=== PATIENT | male | born 1990 | race Caucasian/White ===

== ENCOUNTER 2023-10-17 09:52 | Emergency (ER) | payer MEDICAID, SELFPAY ==
[2023-10-17 09:53] VITALS: BP 130/74; PULSE 104; RESP 18; TEMP 37.7; O2SAT 98; BMI 26.2
--- NOTE | 2023-10-17 10:05 | EX.ED.VIS.UR ---
HPI HPI - URI History of Present Illness Chief Complaint: Cold Sx Informant: patient and spouse/S.O. Onset/Context/Timing Onset: Today and Yesterday Context: Gradual Onset Timing: Continuous Current Severity: Mild Maximum Severity: Mild Associated Symptoms Associated Symptoms: Positive for Nasal Congestion, Myalgias, Nausea, Vomiting and Productive Cough Narrative Narrative: 33-year-old male new to the base of medical history. Yesterday started with sore throat, earaches myalgias. Has had nausea and vomiting. Fever and chills at home subjectively. No known exposure. Productive cough of yellow Prior similar symptoms: Yes Recent Illness/Hospitalization: No ROS ROS ED ROS Narrative Cough. Fever and chills. Nausea and vomiting. Body aches. Review of Systems ROS Unobtainable: Denies due to encephalopathy Constitutional Constitutional ED: Reports chills, fever(s) and subjective Eyes Eyes: Denies blurry vision ENT ENT ED: Reports ear pain, rhinorrhea and sore throat Cardiovascular Cardiovascular: Denies chest pain or palpitations Respiratory/Chest Respiratory/Chest: Denies dyspnea Gastrointestinal Gastrointestinal: Reports nausea and vomiting; Denies abdominal pain, constipation, diarrhea or melena Genitourinary Genitourinary ED: Denies dysuria or hematuria Musculoskeletal Musculoskeletal: Denies arthralgias Integumentary Denies abscess or Abrasions Neurologic Neurologic: Denies headache(s) Psychiatric Psychiatric: Denies anxiety or depression Endocrine Endocrinology: Denies cold intolerance Hematologic/Lymphatic Hematologic/Lymphatic: Denies easy bleeding or easy bruising Allergic/Immunologic Allergic/Immunologic ED: Denies mouth swelling, tongue swelling or urticaria PFSH PFSH Home Medications azithromycin 250 mg tablet (Zithromax Z-Jose) 250 mg PO DAILY 4 days #4 tabs 10/17/23 [Rx Last Taken Unknown] prednisone 20 mg tablet 40 mg (2 x 20 mg) PO DAILY 7 days #14 tabs 10/17/23 [Rx Last Taken Unknown] Allergy/AdvReac Type Severity Reaction Status Date / Time No Known Allergies Allergy Verified 10/17/23 09:52 Surgical History no surgical history no surgical history Social History Smoking Status: Smoker, status unknown EXAM Physical Exam Narrative Exam Narrative: 32-year-old male vital signs are stable he does not look septic or toxic. He does look mildly dehydrated. H EENT exam mild dry mucous membranes. Posterior pharynx unremarkable. Neck nontender no lymphadenopathy. No meningismus. Lungs dry cough. Expiratory wheezes. Equal symmetrical. No rales or rhonchi. Heart tachycardic 105 no murmur. Chest wall and ribs nontender. Abdomen soft nontender. Moving all 4 extremities. Calves are nontender without edema or cords. Neurologically is awake and alert with no focal motor deficits. Const Vital Signs: 10/17/23 09:53 10/17/23 10:13 10/17/23 10:33 Temperature 99.9 F H Temperature Source Temporal Pulse Rate 104 H 96 Respiratory Rate 18 20 H Respiratory Effort Normal Respiratory Pattern Normal Blood Pressure 130/74 H Blood Pressure Mean 92 Pulse Ox 98 Oxygen Delivery Method Room Air 10/17/23 10:15 10/17/23 12:14 Temperature Temperature Source Pulse Rate 92 Respiratory Rate 16 Respiratory Effort Respiratory Pattern Blood Pressure 111/65 Blood Pressure Mean 80 Pulse Ox 97 93 Oxygen Delivery Method Room Air Room Air Positive well nourished and well developed; Negative for cachectic or contractures General Appearance ED: well developed and NAD; Negative for cachectic, contractures, diaphoretic or pallor Nutritional Appearance: Negative for cachectic HEENT Reports dry mucous membranes; Denies moist mucous membranes normocephalic and atraumatic Face and Sinus: Negative for sinus tenderness Mouth ED: Yes dry mucous membranes Mouth: dry mucous membranes Teeth and Gingiva: Negative for caries Throat: posterior oropharynx normal Eyes PERRL and EOMs intact bilaterally General Eye ED: Negative for pale conjunctiva or scleral icterus Neck no lymphadenopathy, supple, no meningeal signs and no JVD General: Negative for anterior neck swelling or lymphadenopathy Resp normal respiratory effort and No clear to auscultation bilaterally Resp Narrative: Bilateral expiratory wheezes. Dry cough. Auscultation: wheezes Cardio S1 normal heart sound, S2 normal heart sound and no murmurs Rate: tachycardic; Negative for bradycardia Rhythm: regular rhythm; Negative for abnormal rhythm GI non-tender, non-distended and no masses Inspection: Negative for abdominal distention Auscultation: normoactive bowel sounds Palpation: soft and tender; Negative for guarding Back/Spine no CVA tenderness and normal ROM General Back: Negative for CVA tenderness Cervical Spine: Negative for cervical spine tenderness Thoracic Spine / Upper Back: Negative for thoracic spinal tenderness Lumbar Spine / Lower Back: Negative for lumbar spinal tenderness Sacrum: Negative for tenderness Extremity normal to inspection and full ROM General Extremety ED: Negative for cyanosis or tenderness General Extremity: Negative for cyanosis Neuro oriented x3 and CN's II-XII intact bilaterally Sensorium / Orientation: alert, oriented to person, oriented to place and oriented to time; Negative for orientation impaired or lethargic Motor Exam: strength 5/5 throughout; Negative for general weakness or strength abnormal Psych mental status grossly normal Appearance: Negative for other Attitude: No agitated Mood & Affect: Negative for depressed, anxious or tearful Skin General Skin Exam: Negative for jaundice or pallor Rashes: no rashes Trauma: Negative for abrasion or laceration MDM MDM MDM Narrative Medical decision making narrative: 34-year-old male suspect viral URI. Rule out pneumonia. Clinically looks dehydrated will be given IV fluids. COVID and flu testing. Chest x-ray. DuoNeb aerosol prednisone for his bronchospasm. Patient doing all well. He will be discharged home.Zithromax Z-Jose first dose here. Prescription for home. Prednisone for his wheezing. History & Record Review Discussion w/independent historian: Patient and Family Additional record(s) reviewed:: No prior records Lab Data Attestation: I reviewed the patient's lab results. Radiography Chest X-Ray - ED: 1 View, Read by ED Physician, Normal, Mediastinum and Bony Structures Diagnostic Testing: Clinical Impression(s) from Imaging Studies Chest X-Ray 10/17/23 10:25 IMPRESSION: Moderate consolidation in the right lung base concerning for pneumonia. Recommend follow-up to resolution. Electronically Signed: Deanne Childers MD at 10:52 EST , Chest x-ray, portable, single view interpreted by myself and the radiologist shows a right lower lobe pneumonia. Normal cardiac silhouette. No effusions.I went over the x-ray results with the patient and his significant other. Discharge Plan Triage Chief Complaint: Cold Sx ED Provider: Tariq Pham Dx/Rx/DC Orders Clinical Impression: Pneumonia Instructions: ED Pneumonia (Adult) Prescriptions: New azithromycin [Zithromax Z-Jose] 250 mg tablet 250 mg PO DAILY 4 Days Qty: 4 0RF Rx Instructions: start on day 2 of therapy prednisone 20 mg tablet 40 mg PO DAILY 7 Days Qty: 14 0RF Primary Care Provider: Care Physician,No Primary Referrals: Larry Hernández MD [Med Staff - [employer]] - 1 Week if not improving Care Physician,No Primary [Primary Care Provider] - Activity Restrictions/Additional Instructions: Plenty of fluids and rest including water, Gatorade and 7-Up. Alternate Tylenol and Motrin for fever body aches. Zithromax for the pneumonia. Prednisone for the wheezing. Off work the next 3 days for rest. Follow-up with a local doctor if not improving return if worse.
[2023-10-17] MEDS: Ipratropium/Albuterol Sulfate 3 ML AMPUL.NEB INHALATION (10:11)
[2023-10-17 10:13] VITALS: PULSE 96; RESP 20
[2023-10-17 10:15] VITALS: O2SAT 97
[2023-10-17] MEDS: 0.9% Normal Saline (1000mL) 1,000 ML 1000 ML IV (10:19)
[2023-10-17] MEDS: Acetaminophen 500 MG Tablet 1000 MG PO (10:19)
[2023-10-17] MEDS: predniSONE 20 MG Tablet 60 MG PO (10:19)
--- OUTSIDE RECORDS SUMMARY | 2023-10-17 10:23 | XMS RPT_ITS | CCD ---
Author Name Unknown Address [address] [place] [address] Organization [facility] Care Team Providers Care Purification Operator Helper Name Role Phone PHONGWENDIBERNABEON Unavailable Unavailable BERNABE CARNESON Unavailable Unavailable MICHELLE PAREKH Unavailable Unavailab BANDAR WyaneZABETH Unavailable Unavailable BANDAR ANDREZABETH Unavailable Unavailable MICHELLE PAREKH Unavailable Unavailab le Michelle Parekh DO Primary Care Provider Unavailable Primary Care Provider UnavailVIJAY Dennis Attending Unavailable ANGELA GODINEZ Attending Unavailable No, Physician Primary Care Provider Unavailabl e LUZ, PHYSICIAN Primary Care Unavailable SUMAN COHEN Referring Unavailable NINA YU Attending Unavailable NO, PHYSICIAN Primary Care Unavailable KORIN EM Attending Unava ilable GAUDENCIO DAVEY Attending Unavailab le NO, PHYSICIAN Primary Care Unavailable KORIN EM Attending Unava ilable NO, PHYSICIAN Primary Care Unavailable NO, PHYSICIAN Primary Care Unavailable KORIN EM Referring Unava SUMAN Lao Attending Unavailable Medications Current Medications Medication Drug Class(es) Dates Sig (Normalized) Sig (Original) amoxicillin 500 mg oral tablet (1 source) Penicillin-class Antibacterial Start: 10-12-2022 End: 10-22-2022 take 1 tablet by mouth twice daily amoxicillin (Amoxil) 500 mg tablet Indications: Strep pharyngitis Take 1 tablet (500 mg total) by mouth 2 (two) times a day for 10 days. 20 tablet 0 10/12/2022 10/22/2022 Active buprenorphine 8 mg / naloxone 2 mg sublingual tablet (1 source) Partial Opioid Agonist, Opioid Antagonist buprenorphine-nalox one (SUBOXONE) 8-[address] 1 tablet under the tongue. 0 Active ondansetron 4 mg disintegrating oral tablet (1 source) Serotonin-3 Receptor Antagonist Start: 07-01-2023 take 1 tablet by mouth every eight hours as needed for nausea ondansetron (ZOFRAN-ODT) 4 MG disintegrating tablet Dissolve 1 (one) tablet (4 mg total) on top of tongue every 8 (eight) hours as needed for nausea . 20 tablet 0 07/01/2023 Active Problems Active Problems Problem Classification Problem Date Documented Da te Episodic/Chronic Calculus of urinary tract (2 sources) Calculus of kidney; Translations: [Calculus of kidney] Onset: 07-01-2023 Episodic Other connective tissue disease (1 source) Groin mass; Translations: [Other specified soft tissue disorders] 08-10-2023 Episodic Other connective tissue disease (2 sources) Other specified soft tissue disorders; Translations: [Other specified soft tissue disorders] Onset: 08-10-2023 Episodic Other lower respiratory disease (1 source) Cough; Translations: [Acute cough] Episodic Other male genital disorders (1 source) Pain of right testicle; Translations: [Right testicular pain] 08-10-2023 Episodic Other male genital disorders (6 sources) Right testicular pain; Translations: [Right testicular pain] Onset: 07-26-2023 Episodic Other upper respiratory infections (2 sources) Sore throat symptom; Translations: [Acute pharyngitis, unspecified] Episodic Skin and subcutaneous tissue infections (2 sources) Cellulitis of other sites; Translations: [Cellulitis of other sites] Onset: 07-26-2023 Episodic Unclassified (1 source) Migraine without aura, not intractable, without status migrainosus / G43.009(ICD-10) Onset: 08-22-2018 Past or Other Problems Problem Classification Problem Date Documented Da te Episodic/Chronic Superficial injury; contusion (2 sources) Contusion of right middle finger without damage to nail, initial encounter; Translations: [Contusion of right middle finger without damage to nail, initial encounter] Onset: 02-24-2023 Episodic Results Test Name Value Interpretation Reference Range Facil ity Vital Signs Date Time Vital Sign Value Performing Clinician Facility 08-10-2023 13:41-0500 Diastolic blood pressure 92 mm[Hg] Nina Yu MD Work Phone: [facility] 08-10-2023 13:41-0500 Heart rate 88 /min Nina Yu MD Work Phone: [facility] 08-10-2023 13:41-0500 SaO2% (BldA) [Mass fraction] 98 % Nina Yu MD Work Phone: [facility] 08-10-2023 13:41-0500 Systolic blood pressure 140 mm[Hg] Nina Yu MD Work Phone: [facility] 10-12-2022 12:09-0500 Body temperature 98.4 [degF] Angela Godinez PROMOTION OFFICER-OFFICE PROFESSIONAL Work Phone: [facility] 10-12-2022 12:09-0500 Diastolic blood pressure 81 mm[Hg] Angela Godinez PROMOTION OFFICER-OFFICE PROFESSIONAL Work Phone: [facility] 10-12-2022 12:09-0500 Heart rate 104 /min Angela Godinez PROMOTION OFFICER-OFFICE PROFESSIONAL Work Phone: [facility] 10-12-2022 12:09-0500 Respiratory rate 20 /min Angela Godinez PROMOTION OFFICER-OFFICE PROFESSIONAL Work Phone: [facility] [employer] 10-12-2022 12:09-0500 SaO2% (BldA) [Mass fraction] 97 % Angela Godinez PROMOTION OFFICER-OFFICE PROFESSIONAL Work Phone: [facility] [employer] 10-12-2022 12:09-0500 Systolic blood pressure 118 mm[Hg] Angela Godinez PROMOTION OFFICER-OFFICE PROFESSIONAL Work Phone: [facility] Encounters Encounter Date Encounter Type Care Provider Facility Start: 08-10-2023 End: 08-10-2023 ambulatory PHYSICIAN NO [facility] Start: 08-10-2023 End: 08-10-2023 Office outpatient new 45 minutes Nina Yu MD Work Phone: [facility] Procedures Date Procedure Procedure Detail Performing Clinician Start: 08-10-2023 MEASURE POST VOID RESIDUAL Nina Yu MD Work Phone: Start: 08-10-2023 Urnls dip stick/tabl et rgnt auto w/o microscopy Nina Yu MD Work Phone: Start: 10-12-2022 POC COVID-FLU MARKO Petey Godinez PROMOTION OFFICER-OFFICE PROFESSIONAL Work Phone: Start: 10-12-2022 Iaadiadoo streptococ cus group a Angela Godinez PROMOTION OFFICER-OFFICE PROFESSIONAL Work Phone: Plan of Treatment Date Care Activity Detail Author Start: 2039 Zoster Vaccines (1 of 2) Zoster Vaccines (1 of 2) [facility] Start: 12-29-2025 Tetanus vaccination Tetanus: Every 10yrs [facility] Start: 04-03-2024 DTaP/Tdap/Td Vaccines (6 - Td or Tdap) DTaP/Tdap/Td Vaccines (6 - Td or Tdap) [facility] Start: 09-14-2023 End: 09-14-2023 Patient encounter procedure 09/14/2023 3:15 PM EST Office Visit [facility] Physician [facility] [address] [place] [address] Nina Yu MD [address] [place] [address] [facility] Physician [facility] Start: 05-07-2023 Influenza vaccination Sequential Influenza Vaccine (#1) [facility] Start: 05-07-2022 Influenza vaccination Influenza Vaccine (#1) [facility] Start: 05-07-2021 Influenza vaccination given INFLUENZA VACCINE (Season Ended) [facility] Start: 2007 ANNUAL WELLNESS VISIT ANNUAL WELLNESS VISIT [facility] Start: 2007 Hepatitis C screening Hepatitis C Screening [facility] Start: 2004 HIV screening HIV Screening [facility] Start: 2001 Depression screening using PHQ-9 (Patient Health Questionnaire 9) score [facility] Start: 2000 Diphtheria + pertussis + tetanus vaccine (product) DTAP/TDAP/TD VACCINE (1 - Tdap) [facility] Start: 1995 Pneumococcal Vaccine: Ped or At-Risk (1 - PCV) Pneumococcal Vaccine: Ped or At-Risk (1 - PCV) [facility] Start: 1995 Pneumococcal Vaccine: Pediatrics (0 to 5 Years) and At-Risk Patients (6 to 64 Years) (1 - PCV) Pneumococcal Vaccine: Pediatrics (0 to 5 Years) and At-Risk Patients (6 to 64 Years) (1 - PCV) [facility] Start: 1992 History and physical examination, annual for health maintenance Wellness Visit [facility] Start: 1989 COVID-19 Vaccine (#1) COVID-19 Vaccine (#1) [facility] Start: 1989 Hepatitis C screening Hepatitis C Screening [facility] Start: 1989 HIV screening HIV Screening [facility] Start: 1989 Lipid panel Lipid Panel [facility] End: 08-10-2024 MR Pelvis WO and W contrast IV MR Pelvis With And Without Contrast Imaging Routine Mass Of Deep Soft Tissue Of Groin 1 Occurrences starting 08/10/2023 until 08/10/2024 [facility] Work Phone: Immunizations Immunization Date Immunization Notes Care Provider Chanelle whalen 06-06-2018 influenza virus vaccine, unspecified formulation Angela Godinez PROMOTION OFFICER-OFFICE PROFESSIONAL Work Phone: [facility] 12-30-2015 tetanus toxoid, redu ishmael diphtheria toxoid, and acellular pertussis vaccine, adsorbed Nina Yu MD Work Phone: [facility] Payers Date Payer Category Payer Unknown [id number] 2020 Medicaid [id number] 2020 Medicaid [id number] 2018 Medicaid RANJANACLYDESuzan CLARK O [id number] 2018-Present [address] [place] [address] Medicaid [id number] 1989 Unknown [id number] 1989 Unknown [id number] 1989 Unknown [id number] 1989 Unknown [id number] 1989 Unknown [id number] 1989 Unknown [id number] 1989 Unknown [id number] Social History Date Type Detail Facility Start: 08-22-2018 End: 02-24-2023 Tobacco smoking status NHIS Current every day smoker [facility] History of tobacco use Cigarette Smoker [facility] Start: 08-22-2018 End: 08-10-2023 Cigarettes smoked current (pack per day) - Reported [facility] Start: 08-22-2018 End: 06-17-2021 Tobacco use and exposure Never used [facility] Start: 08-22-2018 End: 08-10-2023 Alcohol intake Current non-drinker of alcohol (finding) [facility] Start: 1990 Sex Assigned At Not on file [facility] Start: 10-02-2022 End: 10-12-2022 Exposure to SARS-CoV-2 (event) Not sure [facility] Start: 08-10-2023 Tobacco use panel [facility] Start: 07-01-2023 Gender identity Identifies as male gender (finding) [facility] Start: 07-01-2023 Sexual orientation Heterosexual (finding) [facility] History of Present illness Narrative 08-10-2023 Nina Yu MD - 08/10/2023 1:44 PM EST Note Date & Type Note Facility 08-10-2023 History of Presen t illness Narrative [facility] Patient / Consultation Patient Name: El Hunter II Admit Date: MR #: [id number] : 1990 Physicians: No, Physician (Family); Suman Cohen DO (Referring) Chief Complaint/Reason for Visit: scrotal lesion History of Present Illness: 33 y.o. male referred for scrotal lesion ~3 months ago noticed a knot within / on the right side of the scrotum. No obvious inciting incident, trauma / injury, bite or exposure. Seems to be stable in size / not enlarging. No drainage or redness. Just feels hard. There is some random intermittent associated pain in the area, not always due to touching the area, ambulation or activity. No Hx similar issues. No associated urinary symptoms. No prior scrotal or testicular surgeries. No erection issues or associated sexual dysfunction. Record Review: - I reviewed patient's records from ED provider Suman Cohen DO. History: Past Medical History: Diagnosis Date ADHD (attention deficit hyperactivity disorder) Back pain Bipolar 1 disorder (HCC) Hypertension Past Surgical History: Procedure Laterality Date EYE SURGERY History reviewed. No pertinent family history. Social History Socioeconomic History Marital status: Tobacco Use Smoking status: Every Day Packs/day: 2 Types: Cigarettes Vaping Use Vaping Use: Never used Substance and Sexual Activity Alcohol use: No Drug use: No Allergies: I have reviewed the patient's allergies. Patient has no known allergies. Home Medications: Outpatient Medications as of 08/10/2023 Medication Sig ondansetron (ZOFRAN-ODT) 4 MG disintegrating tablet Dissolve 1 (one) tablet (4 mg total) on top of tongue every 8 (eight) hours as needed for nausea . Review of Systems: The following system(s) were reviewed and pertinent findings noted: Review of Systems Constitutional: Negative for activity change, chills, fever and unexpected weight change. Gastrointestinal: Negative for abdominal pain, diarrhea, nausea and vomiting. Objective: Vital Signs: BP (!) 140/92 Pulse 88 SpO2 98% Physical Exam Vitals reviewed. Constitutional: General: He is not in acute distress. Appearance: He is not diaphoretic. Pulmonary: Effort: Pulmonary effort is normal. No respiratory distress. Abdominal: General: There is no distension. Palpations: Abdomen is soft. Tenderness: There is no abdominal tenderness. Genitourinary: Comments: Circumcised phallus, orthotopic meatus; scrotum developed & without edema, erythema or lesion; testicles descended & nontender without any palpable masses or lesions. Within the right groin crease lateral to the right hemiscrotum & lateral to the right spermatic cord, there is a small ~1-2cm somewhat nodular structure that is mobile & without palpable tenderness or fluctuance; the overlying skin shows several stretch hyde; differential would include lymph node, sebaceous cyst, soft tissue neoplasm. Neurological: General: No focal deficit present. Mental Status: He is alert and oriented to person, place, and time. Psychiatric: Mood and Affect: Mood normal. Behavior: Behavior normal. Laboratory Results Reviewed: No results found for: PSASCRN , PSA , PSAFREE No results found for: TESTOSTERONE , E2 Lab Results Component Value Date WBC 6.38 07/01/2023 HGB 13.7 07/01/2023 HCT 41.6 07/01/2023 MCV 90.2 07/01/2023 PLT 372 07/01/2023 Lab Results Component Value Date GLUCOSE 93 01/30/2017 CALCIUM 9.2 01/30/2017 NA 141 01/30/2017 K 4.3 01/30/2017 CL 102 01/30/2017 BUN 10 07/01/2023 CREATININE 0.94 07/01/2023 Recent Results (from the past 24 hour(s)) POC Urinalysis Dipstick, Auto Collection Time: 08/10/23 1:37 PM Result Value Ref Range Glucose, UA Negative Normal, Negative mg/dL Bilirubin, UA Negative Negative Ketones, UA Negative Negative mg/dL Spec Grav, UA 1.020 1.005 - 1.025 Blood, UA Negative Negative pH, UA 6.5 5.0 - 7.0 Protein, UA Negative Negative mg/dL Urobilinogen, UA 0.2 <2.0, 0.2, Normal, Negative, 1.0, 2.0, <1.0 mg/dL Nitrite, UA Negative Negative Leukocyte Esterase, UA Negative Negative Measure post void residual Collection Time: 08/10/23 1:42 PM Result Value Ref Range Measure Post Void Residual 0 Imaging Reviewed: Images & report independently reviewed; images independently interpreted by me: - Questionable soft tissue lesion with blood flow on image labeled scrotum; testicles appear healthy with adequate flow & no masses. US Testicle With Color Flow Result Date: 07/26/2023 EXAMINATION: US TESTICLE WITH COLOR FLOW HISTORY: ORDERING SYSTEM PROVIDED HISTORY: Right testicular/scrotal mass and pain, TECHNOLOGIST PROVIDED HISTORY: Illness/Other Reason for exam: right testicular/scrotal mass and pain Cancer History: unknown Surgery, RadiationHistory: unknown Encounter Type: Initial Additional signs and symptoms: none ORDERING SYSTEM PROVIDED DIAGNOSIS CODES: COMPARISON: None. TECHNIQUE: Arterial duplex examination performed using B-mode, color flow and spectral analysis. FINDINGS: The right testicle measures 3.9 x 3.2 x 2.1 cm. Arterial and venous waveforms are present. The resistive index is 0.5. No testicular mass. The right epididymis measures 0.9 x 0.9 x 0.8 cm and appears normal. The left testicle measures 4.4 x 3 x 2 cm. Arterial and venous waveforms are present. The resistive index is 0.7. No testicular mass. The left epididymis measures 0.5 x 1.2 x 1.4 cm and appears normal. No hydrocele. In the right scrotum at the area of pain as indicated by the patient, there is an ill-defined heterogeneous area with overall central hypoechogenicity and peripheral hyperemia measuring 0.9 x 0.5 x 0.7 cm. 1. Ill-defined mass in the right scrotum with peripheral hyperemia has imaging features suggesting an abscess with other differential considerations including an extratesticular neoplasm. 2. No evidence of torsion, testicular mass, or epididymo-orchitis. /[facility] Workstation ID: [id number] Assessment: El Hunter is a 33 y.o. y/o male Diagnoses and all orders for this visit: Mass of deep soft tissue of groin - MR Pelvis With And Without Contrast; Future Pain in right testicle - POC Urinalysis Dipstick, Auto - Measure post void residual - UA today shows neg RBC, neg LE, neg nitrite. No further workup. - PVR today by bladder scan: 0 cc - Discussed common etiologies of scrotal / testicular swelling including infection, inflammation, trauma, hydrocele, varicocele, spermatocele / epididymal cyst, scrotal cyst or mass, testicular mass both benign or malignant, spermatic cord or epididymal mass, hernia, peripheral edema / CHF / cirrhosis / nephrotic syndromes, among others. - Discussed diagnostic workup beginning with scrotal / testicular ultrasound & urinalysis / PVR / assessment of voiding function. - Discussed additional testing to rule out occult UTI / prostatitis, include PCR testing of urine and/or semen. - Discussed management options for symptoms including scrotal support / elevation & intermittent ice; discussed risks/benefits/alternatives to definitive management involving surgical excision of hydrocele. Discussed more conservative procedural intervention with hydrocele aspiration under local anesthesia & that this is typically less effective due to low success / high recurrence rates but can be an appropriate option in certain scenarios when more definitive operative intervention is not preferred due to additional risks and/or patient preference. - Discussed possible etiologies of scrotal / testicular pain including infection, inflammation, trauma, hydrocele, varicocele, spermatocele / epididymal cyst, scrotal cyst or mass, testicular mass both benign or malignant, spermatic cord or epididymal mass, hernia, urolithiasis, constipation, chronic pain of unknown etiology, among others. - Discussed diagnostic workup beginning with scrotal / testicular ultrasound & urinalysis / PVR / assessment of voiding function. - Discussed additional testing to rule out occult UTI / prostatitis, include PCR testing of urine and/or semen. - Discussed possible treatment options pending workup if no definitive causative etiology can be determined, including trial of NSAIDs, scrotal support / elevation / ice, trial of antibiotics, spermatic cord injection / nerve block, referral to pain management, operative interventions for pain in the absence of anatomical abnormality including spermatic cord denervation & orchiectomy. - Discussed that testicular / scrotal pain in absence of identifiable pathology is relatively common, can be self-limiting or progressive / chronic in nature & can unfortunately become worse with any of the above interventions. Plan: - Lesion in question does not seem to be urologic in origin, but is located in the soft tissue of the groin crease / medial thigh & is palpably separate from the scrotal wall, scrotal contents & spermatic cord. - Based on my review of imaging & patient history & physical exam, index of suspicion for malignant neoplasm is low, but given radiologist interpretation of scrotal US, further imaging to better characterize the lesion is warranted, so will have patient complete MRI pelvis. - F/u ~ 1mo with MRI pelvis prior to reassess, sooner if issues / concerns / worsening or new symptoms. - Patient expressed understanding of the above discussion. All questions answered. Assessment Detail: The total time spent for this visit was 50 minutes. Greater than 50% of the time was spent in counseling and coordination of care regarding scrotal mass, testicular mass, followup plan. Nina Yu MD [facility] - [facility] 1:44 PM 08/10/23 documented in this encounter [facility] History of Present illness Narrative 10-12-2022 Latisha Powell LPN - 10/12/2022 12:00 PM Tunde Godinez APRN-OFFICE PROFESSIONAL - 10/12/2022 12:00 PM EST Note Date & Type Note Facility 10-12-2022 History of Present illness Narrative Pt c/o sore throat, sinus pressure, cough, bilateral ear pain x 2 days Urgent Care Encounter El Hunter, is a 32 y.o., male, has no past medical history on file. presents today with a chief complaint of: HPI Patient presents today with a chief complaint of sore throat and bilateral ear pain. He reports the symptoms started around 2 to 3 days ago after visiting [facility] over the weekend. He denies any known fevers denies any nausea vomiting reports pain is mostly present with swallowing. History reviewed. No pertinent surgical history. No family history on file. Social History Tobacco Use Smoking status: Every Day Smokeless tobacco: Never Substance Use Topics Alcohol use: Not on file Drug use: Not Currently No Known Allergies Review of Systems Constitutional: Negative for chills and fever. HENT: Positive for ear pain and sore throat. Respiratory: Positive for cough. Negative for wheezing. Cardiovascular: Negative for chest pain. Gastrointestinal: Negative for nausea and vomiting. Visit Vitals BP 118/81 Pulse 104 Temp 36.9 C (98.4 F) Resp 20 SpO2 97% Smoking Status Every Day Physical Exam Constitutional: General: He is not in acute distress. Appearance: He is not toxic-appearing. HENT: Head: Normocephalic. Right Ear: Hearing, ear canal and external ear normal. Tympanic membrane is erythematous. Left Ear: Hearing, tympanic membrane, ear canal and external ear normal. Nose: Nose normal. Right Sinus: No maxillary sinus tenderness or frontal sinus tenderness. Left Sinus: No maxillary sinus tenderness or frontal sinus tenderness. Mouth/Throat: Lips: [place]. Mouth: Mucous membranes are moist. Pharynx: Uvula midline. Posterior oropharyngeal erythema present. No oropharyngeal exudate or uvula swelling. Cardiovascular: Rate and Rhythm: Tachycardia present. Pulses: Normal pulses. Heart sounds: Normal heart sounds. Pulmonary: Effort: Pulmonary effort is normal. Breath sounds: Normal breath sounds. Lymphadenopathy: Cervical: Cervical adenopathy (Left anterior cervical lymph node enlargementl) present. Skin: General: Skin is warm and dry. Capillary Refill: Capillary refill takes less than 2 seconds. Neurological: General: No focal deficit present. Mental Status: He is alert and oriented to person, place, and time. Procedures Diagnoses and all orders for this visit: Strep pharyngitis - amoxicillin (Amoxil) 500 mg tablet; Take 1 tablet (500 mg total) by mouth 2 (two) times a day for 10 days. Sore throat - POCT rapid strep A manually resulted - POC Influenza A/B and SARS Antigen manually resulted Acute cough - POC Influenza A/B and SARS Antigen manually resulted Medical Decision Making Recent Results (from the past 24 hour(s)) POCT rapid strep A manually resulted Collection Time: 10/12/22 12:26 PM Result Value Ref Range Strep A Ag Positive (A) Negative INTERNAL CONTROLS Acceptable POC Influenza A/B and SARS Antigen manually resulted Collection Time: 10/12/22 12:30 PM Result Value Ref Range Marko SARS Antigen Presumptive Negative Presumptive Negative Influenza A Negative Negative Influenza B Negative Negative INTERNAL CONTROLS Acceptable ED Prescriptions Medication Sig Dispense Start Date End Date Auth. Provider amoxicillin (Amoxil) 500 mg tablet Take 1 tablet (500 mg total) by mouth 2 (two) times a day for 10 days. 20 tablet 10/12/2022 10/22/2022 Angela Godinez, PROMOTION OFFICER-OFFICE PROFESSIONAL No orders to display MDM Number of Diagnoses or Management Options Acute cough Sore throat Strep pharyngitis Diagnosis management comments: Patient has a positive for strep a in office today. Discussed with patient treatment for strep pharyngitis and importance of completing antibiotic therapy completely even if symptoms resolve. Encourage patient to increase fluids and to use [id number] Tylenol Motrin for any discomforts and fever. Patient verbalizes understanding of treatment plan and will follow-up as needed. This dictation was created using Voice Recognition software. Phonetic and/or minor grammatical errors may exist. Any corrections will be found as an append to the document. documented in this encounter [facility] Evaluation note Note Date & Type Note Facility documented in this encounter [facility] Evaluation note Note Date & Type Note Facility documented in this encounter [facility] Instructions Attachments Note Date & Type Note Facility Instructions The following attachments cannot be sent through Care Everywhere.Testicular Pain ([place])Testicular Mass ([place])Testicular Self-Exam ([place])documented in this encounter [facility] Summary Purpose Family History No Family History Records FoundNo Family History Records FoundNo Family History Records FoundNo Family History Records FoundNo Family History Records FoundNo Family History Records Found Advance Directives No Advanced Directives Records FoundDocuments on File Type Date Recorded Patient Reimbursement Consultant Expl anation Advance Directives and Living Will Power of Office Administrator Latest Code Status on File Code Status Date Activated Date Inactivated Comments Full Code 06/17/2021 12:02 PM 06/17/2021 3:32 PM Reason for Referral Specialty Diagnoses / Procedures Referred By Nathaniel parmar Referred To Contact Radiology Diagnoses Mass of deep soft tissue of groin Procedures MR Pelvis With And Without Contrast Nina Yu MD [facility] [place] [address] Referral ID Status Reason Start Date Expiration Date V isits Requested Visits Authorized [id number] New Request 08/10/2023 08/09/2024 1 1 Additional Source Comments (unrecognized sect ion and content) No Status Records FoundNo Status Records FoundNo Status Records FoundNo Status Records FoundNo Status Records FoundNo Status Records Found INFORMATION SOURCE (unrecogn ized section and content) DATE CREATED AUTHOR AUTHOR'S ORGANIZ ATION 10/26/2020 [facility] DATE CREATED AUTHOR AUTHOR'S ORGANIZ ATION 10/12/2022 [facility] DATE CREATED AUTHOR AUTHOR'S ORGANIZ ATION 08/13/2023 [facility] DATE CREATED AUTHOR AUTHOR'S ORGANIZ ATION 08/15/2023 [facility] DATE CREATED AUTHOR AUTHOR'S ORGANIZ ATION 08/15/2023 [facility] Reason for Visit (unrecogniz ed section and content) Reason Comments Testicle Pain Knot in testicle - 2-3 months Care Teams (unrecognized sec tion and content) FOR RECORDS PERTAINING TO PATIENTS WHO ARE OR HAVE BEEN ENROLLED IN A CHEMICAL DEPENDENCY/SUBSTANCEABUSE PROGRAM, SOME INFORMATION MAY BE OMITTED. This clinical summary was aggregated from multiple sources. Caution should be exercised in using it in the provision of clinical care. This summary normalizes information from multiple sources, and as a consequence, information in this document may materially change the coding, format and clinical context of patient data. In addition, data may be omitted in some cases. CLINICAL DECISIONS SHOULD BE BASED ON THE PRIMARY CLINICAL RECORDS. [facility] better. [facility]. provides no warranty or guarantee of the accuracy or completeness of information in this document.
--- NOTE | 2023-10-17 10:25 | RAD_ITS ---
HISTORY: cough. TECHNIQUE: XR Chest 1 View. COMPARISON: None. FINDINGS: CARDIOMEDIASTINAL BORDERS: Cardiac silhouette within normal limits in size. Mediastinal contour unremarkable. LUNGS: Moderate focal opacity in the right lung base outlining the minor fissure. PLEURA: No pleural effusion or pneumothorax seen. OSSEOUS STRUCTURES: Unremarkable. RAD/Chest 1 View (Portable) IMPRESSION: Moderate consolidation in the right lung base concerning for pneumonia. Recommend follow-up to resolution. Electronically Signed: Deanne Childers MD at 10:52 EST ,
[2023-10-17 12:14] VITALS: BP 111/65; PULSE 92; RESP 16; O2SAT 93
[2023-10-17] MEDS: Azithromycin 250 MG Tablet 500 MG PO (12:47)
[2023-10-17 12:51] VITALS: BP 115/68; PULSE 93; RESP 18; O2SAT 95
== END 2023-10-17 12:52 | disposition home or self-care (01) ==
PROVIDERS: Emergency Provider Emergency Medicine; Visit Provider Emergency Medicine
DX: J18.9 Pneumonia, unspecified organism (principal); F17.200 Nicotine dependence, unspecified, uncomplicated; M79.10 Myalgia, unspecified site; R11.2 Nausea with vomiting, unspecified
CPT/HCPCS: 71045; 87631; 94640; 96360; 96361; 99284; J7030; A4216